=== PATIENT | female | born 1985 | race Caucasian/White ===

== ENCOUNTER 2019-01-12 03:41 | Emergency (ER) | payer MEDICAID ==
[~2019-01-12] VITALS: Ht 160 cm; Wt 54.9 kg
[~2019-01-12 03:41] MED LIST: ACET500C5 PO; CEPH-443 PO; PREN-93 PO
[2019-01-12 03:42] VITALS: Ht 160 cm; Wt 54.9 kg
[2019-01-12] MEDS ORDERED: ACETAMINOPHEN 500 MG TAB PO STA (03:59)
[2019-01-12] MEDS ORDERED: SOD CHLORIDE 0.9% 1,000 ML IV ONE (04:00)
[2019-01-12 05:59] VITALS: BP 108/70; PULSE 63; RESP 17
== END 2019-01-12 06:00 | disposition home or self-care (01) ==
LOC: FTE 03:41
DX: O20.9 Hemorrhage in early pregnancy, unspecified (principal); O26.891 Other specified pregnancy related conditions, first trimester; R10.2 Pelvic and perineal pain; Z3A.01 Less than 8 weeks gestation of pregnancy
CPT/HCPCS: 76801; 76817; 80053; 81001; 82150; 83690; 84702; 85025; 85610; 85730; 86900; 86901; 87086; 96360; J7030; Z7502; Z7610

== ENCOUNTER 2019-03-12 20:04 | Emergency (ER) | payer MEDICAID ==
[~2019-03-12] VITALS: Ht 162.6 cm; Wt 54.9 kg
[2019-03-12 20:34] VITALS: BP 100/65; PULSE 78; RESP 22; Ht 162.6 cm; Wt 54.9 kg
== END 2019-03-12 22:56 | disposition home or self-care (01) ==
LOC: FTE 20:04
DX: O02.1 Missed abortion (principal)
CPT/HCPCS: 76805; 84702; Z7502